=== PATIENT | male | born 2005 | race Two or more races ===

== ENCOUNTER 2024-05-17 15:51 | Emergency (ER) | payer MEDICAID, OTHER ==
[~2024-05-17] VITALS: Ht 185.4 cm; Wt 113.1 kg
[2024-05-17] MEDS ORDERED: HYDR-4798 PO (18:05)
[2024-05-17] MEDS: HYDROcodone-ACET 10/325MG TAB PO ONE (18:14)
[2024-05-17 18:17] VITALS: BP 133/90; PULSE 86; RESP 18; TEMP 98.2; O2SAT 97
== END 2024-05-17 18:39 | disposition home or self-care (01) ==
LOC: ER 15:51
DX: S52.122A Displaced fracture of head of left radius, initial encounter for closed fracture (principal); Z88.1 Allergy status to other antibiotic agents; Z79.899 Other long term (current) drug therapy; V89.9XXA Person injured in unspecified vehicle accident, initial encounter; Y93.55 Activity, bike riding; Y92.89 Other specified places as the place of occurrence of the external cause; Y99.8 Other external cause status
CPT/HCPCS: 29105; 73080